=== PATIENT | male | born 1950 | race African-American/Black ===

== ENCOUNTER 2023-04-15 06:14 | Observation (INO) | payer BC, MEDICAID ==
[~2023-04-15] VITALS: Ht 165.1 cm; Wt 67.3 kg
[~2023-04-15 06:14] MED LIST: AMLO1TAB22 PO; CARB25TA79 PO; TAMS-35 PO
[2023-04-15] MEDS ORDERED: fentaNYL CITRATE 100 MCG/2 ML VL ONE ×2 (07:05→08:20)
[2023-04-15] MEDS ORDERED: PROPOFOL 10 MG/ML 20 ML IV ONE (07:06)
[2023-04-15] MEDS ORDERED: cefTRIAXone SOD 1,000 MG VL ONE (07:25)
[2023-04-15] MEDS ORDERED: HYDROmorphone HCL 2 MG/ML VL/or syr IV PRN (07:30)
[2023-04-15] MEDS ORDERED: ePHEDrine SULFATE 50 MG/ML AMP ONE (07:59)
[2023-04-15 08:45] VITALS: PULSE 81; RESP 12; O2SAT 96
[2023-04-15] MEDS ORDERED: NITROGLYCERIN 0.4 MG SL TAB SL PRN (09:00)
[2023-04-15] MEDS ORDERED: MORPHINE SULFATE INJ 2 MG/ml SYRG IV PRN (09:00)
[2023-04-15 14:31] VITALS: PULSE 78; RESP 17
[2023-04-15] MEDS ORDERED: CARBIDOPA W LEVODOPA 25/100mg TABLET PO ONE (15:45)
[2023-04-15] MEDS ORDERED: HYDROcodone-ACET 5/325MG TAB PO PRN (15:45)
[2023-04-15] MEDS ORDERED: amLODIPine BESYLATE 5 MG TAB PO ONE (15:45)
[2023-04-15 17:00] VITALS: BP 120/77; PULSE 94; RESP 18; TEMP 98.3; O2SAT 95
[2023-04-15] MEDS ORDERED: TAMSULOSIN HYDROCHLORIDE 0.4 MG CAP PO SCH (18:00)
[2023-04-15 20:30] VITALS: PULSE 92; RESP 17; O2SAT 95
[2023-04-15] MEDS: CARBIDOPA W LEVODOPA 25/100mg TABLET PO SCH (21:57)
[2023-04-15 22:00] VITALS: BP_SYST 102; BP_SYST 156; BP_DIAS 62; BP_DIAS 84; PULSE 111; PULSE 62; RESP 17; TEMP 100.1; O2SAT 95; O2SAT 98
[2023-04-16 05:01] VITALS: BP 144/86; PULSE 80; RESP 17; TEMP 98.8; O2SAT 96
[2023-04-16] MEDS: CARBIDOPA W LEVODOPA 25/100mg TABLET PO SCH ×2 (05:38→14:12)
[2023-04-16 08:37] LABS: Basophils # (auto) 0 10 ^3/uL (0-0.2); Basophils % (auto) 0.5 % (0.0-2.0); Mean Corpuscular Hgb Conc. 33.6 g/dL (32.0-36.0); Monocytes # (auto) 0.3 10 ^3/uL (0-1.3); Neutrophils # (auto) 6.1 10 ^3/uL (1.6-8.6); Red Blood Cells 3.35 10^6/uL (4.5-5.90)
[2023-04-16 08:40] LABS: Eosinophils # (auto) 0 10 ^3/uL (0-0.8); Eosinophils % (auto) 0.6 % (0.0-7.0); Hematocrit 34.9 % (41.0-53.0); Hemoglobin 11.7 g/dL (13.5-17.5); Lymphocytes # (auto) 0.8 10 ^3/uL (0.4-5.4); Lymphocytes % (auto) 11.5 % (10.0-50.0); Mean Corpuscular Volume 104.2 fL (80.0-100.0); Monocytes % (auto) 3.9 % (0.0-12.0); Neutrophils % (auto) 83.5 % (37.0-80.0); Nucleated Red Blood Cells % 0.2 %; Red Cell Distribution Width 13.5 % (11.8-14.3); White Blood Cell 7.3 10^3/uL (4.4-10.8)
[2023-04-16 08:48] VITALS: BP 128/81; PULSE 83; RESP 16; TEMP 98.1; O2SAT 99
[2023-04-16 08:57] LABS: Albumin 3.5 g/dL (3.2-4.8); Alkaline Phosphatase 62 U/L (46-116); Anion Gap 6 (5-15); Aspartate Aminotransferase 13 U/L (13-40); BUN/Creatinine Ratio 9.1 (10.0-20.0); Bilirubin, Total 0.9 mg/dL (0.2-1.0); Blood Urea Nitrogen 15 mg/dL (9-23); Calcium 8.6 mg/dL (8.5-10.1); Carbon Dioxide 28 mmol/L (20-30); Chloride 106 mmol/L (98-107); Glucose 90 mg/dL (74-106); Potassium 3.9 mmol/L (3.5-5.1); Sodium 140 mmol/L (136-145); Total Protein 5.5 g/dL (5.7-8.2)
[2023-04-16 09:15] LABS: Alanine Aminotransferase < 9 U/L (7-40)
[2023-04-16 13:08] VITALS: BP 127/69; PULSE 107; RESP 22; TEMP 98.4; O2SAT 95
[2023-04-16 15:30] VITALS: BP 108/68
== END 2023-04-16 17:29 | disposition home or self-care (01) ==
LOC: SUR 06:14 → OVERFLOW 08:54 → WEST WING 14:52
PROVIDERS: ADMIT Urology; ATTEND Urology
DX: N40.1 Benign prostatic hyperplasia with lower urinary tract symptoms (principal); R33.8 Other retention of urine; I10 Essential (primary) hypertension; G20.A1 Parkinson's disease without dyskinesia, without mention of fluctuations; F02.80 Dementia in other diseases classified elsewhere, unspecified severity, without behavioral disturbance, psychotic disturbance, mood disturbance, and anxiety; Z90.79 Acquired absence of other genital organ(s)
CPT/HCPCS: 36415; 52649; 80053; 85025; 88305; G0378; J0696; J2704; J3010

== ENCOUNTER 2023-12-05 16:33 | Emergency (ER) | payer BC, MEDICAID ==
[~2023-12-05] VITALS: Ht 165.1 cm; Wt 60.9 kg
[2023-12-05 20:01] LABS: Basophils # (auto) 0 10 ^3/uL (0-0.2); Basophils % (auto) 0.3 % (0.0-2.0); Hemoglobin 12.7 g/dL (13.5-17.5); Lymphocytes # (auto) 1.4 10 ^3/uL (0.4-5.4); Red Blood Cells 3.58 10^6/uL (4.5-5.90)
[2023-12-05 20:04] LABS: Eosinophils # (auto) 0.1 10 ^3/uL (0-0.8); Eosinophils % (auto) 0.6 % (0.0-7.0); Hematocrit 37.2 % (41.0-53.0); Lymphocytes % (auto) 16.8 % (10.0-50.0); Mean Corpuscular Hemoglobin 35.4 pg (28.0-32.0); Mean Corpuscular Hgb Conc. 34.1 g/dL (32.0-36.0); Monocytes # (auto) 0.5 10 ^3/uL (0-1.3); Monocytes % (auto) 5.4 % (0.0-12.0); Neutrophils # (auto) 6.6 10 ^3/uL (1.6-8.6); Neutrophils % (auto) 76.9 % (37.0-80.0); Red Cell Distribution Width 12.6 % (11.8-14.3); White Blood Cell 8.5 10^3/uL (4.4-10.8)
[2023-12-05 20:06] LABS: Chloride 108 mmol/L (98-107); Sodium 142 mmol/L (136-145)
[2023-12-05 20:07] LABS: Anion Gap 6 (5-15); Carbon Dioxide 28 mmol/L (20-30)
[2023-12-05 20:08] LABS: Calcium 9.4 mg/dL (8.5-10.1)
[2023-12-05 20:13] LABS: BUN/Creatinine Ratio 19.2 (10.0-20.0); Blood Urea Nitrogen 25 mg/dL (9-23); Glucose 94 mg/dL (74-106)
[2023-12-05 20:16] LABS: INR 1.03 (0.9-1.15); Partial Thromboplastin Time 29.5 SEC (24.5-34.5); Prothrombin Time 10.9 sec (9.3-11.8)
[2023-12-06] MEDS: ONDANSETRON HCL 4 MG/2 ML VIAL IV ONE (01:50)
[2023-12-06] MEDS: MORPHINE SULFATE 4 MG/ML SYR/VIAL IV ONE (01:50)
[2023-12-06 06:36] VITALS: BP 162/92; TEMP 100
[2023-12-06 06:38] VITALS: PULSE 72; RESP 19; O2SAT 91
== END 2023-12-06 07:23 | disposition short-term general hospital (02) ==
LOC: ER 16:33
DX: R33.9 Retention of urine, unspecified (principal); I10 Essential (primary) hypertension; Z98.890 Other specified postprocedural states; Z79.899 Other long term (current) drug therapy
CPT/HCPCS: 36415; 80048; 85025; 85610; 85730; 96374; 96375; 99285; J2270; J2405